=== PATIENT | female | born 1970 | race Caucasian/White ===

== ENCOUNTER 2018-12-29 10:11 | Outpatient (CLI) | payer OTHER ==
--- NOTE | 2018-12-29 11:46 | RAD ---
CHEST TWO VIEWS: INDICATIONS: Nonspecific reaction to gamma interferon. COMPARISON: 01/29/2015 FINDINGS: The lungs are clear. The heart size is normal. No acute osseous abnormality is evident. IMPRESSION: No acute cardiopulmonary abnormality. POS: [facility]
== END 2018-12-29 10:12 | disposition home or self-care (01) ==
LOC: BICRAD 10:11
PROVIDERS: ATTEND Internal Medicine Rheumatology
DX: R76.12 Nonspecific reaction to cell mediated immunity measurement of gamma interferon antigen response without active tuberculosis (principal); Z79.899 Other long term (current) drug therapy
CPT/HCPCS: 71046

== ENCOUNTER 2018-12-30 11:58 | Outpatient (CLI) | payer OTHER ==
--- NOTE | 2018-12-30 12:26 | MMO ---
Bilateral MAMMO Bilat Screen [facility]. CLINICAL HISTORY: Patient is 48 years old and is seen for screening. The patient has no family history of breast cancer. The patient has no personal history of cancer. VIEWS: The views performed were: bilateral craniocaudal with tomosynthesis and bilateral mediolateral oblique with tomosynthesis. FILMS COMPARED: The present examination has been compared to prior imaging studies performed at [facility] on 11/05/2011, 06/29/2014, 07/19/2015 and 07/23/2016. MAMMOGRAM FINDINGS: The breasts are heterogeneously dense, which could obscure a lesion on mammography. There are no suspicious masses, suspicious calcifications, or new areas of architectural distortion. IMPRESSION: THERE IS NO MAMMOGRAPHIC EVIDENCE OF MALIGNANCY. A ROUTINE FOLLOW-UP MAMMOGRAM IN 1 YEAR IS RECOMMENDED. THE RESULTS OF THIS EXAM WERE SENT TO THE PATIENT. ACR BI-RADS Category 1 - Negative MAMMOGRAPHY NOTE: 1. A negative mammogram report should not delay a biopsy if a dominant of clinically suspicious mass is present. 2. Approximately 10% to 15% of breast cancers are not detected by mammography. 3. Adenosis and dense breasts may obscure an underlying neoplasm.
== END 2018-12-30 11:59 | disposition home or self-care (01) ==
LOC: BICMAMMO 11:58
PROVIDERS: ATTEND Obstetrics & Gynecology
DX: Z12.31 Encounter for screening mammogram for malignant neoplasm of breast (principal)
CPT/HCPCS: 77063; 77067

== ENCOUNTER 2019-05-03 09:08 | Outpatient (CLI) | payer OTHER ==
--- NOTE | 2019-05-03 09:59 | RAD ---
LUMBAR SPINE TWO VIEWS: HISTORY: Lumbago with sciatica. Posterior pelvis pain. Pain radiating down both legs. FINDINGS: Mild levoscoliosis of the lower lumbar spine. Multilevel disk osteophytosis changes and facet arthros is. Narrowing at the L4-L5 disk. IMPRESSION: 1. Lumbar spondylosis, particularly at L4-L5. 2. Mild scoliotic changes. 3. No acute fracture or dislocation or other acute process. POS: OFF
== END 2019-05-03 09:09 | disposition home or self-care (01) ==
LOC: BICRAD 09:08
PROVIDERS: ATTEND Nurse Practitioner Family
DX: M54.41 Lumbago with sciatica, right side (principal); M54.42 Lumbago with sciatica, left side; M47.816 Spondylosis without myelopathy or radiculopathy, lumbar region; M41.9 Scoliosis, unspecified
CPT/HCPCS: 72100

== ENCOUNTER 2021-08-12 11:45 | Outpatient (CLI) | payer OTHER | END 2021-08-12 11:46 | disposition home or self-care (01) | LOC: BICRAD 11:45 | PROVIDERS: ATTEND Internal Medicine Rheumatology | DX: Z20.1 Contact with and (suspected) exposure to tuberculosis (principal) | CPT/HCPCS: 71046 ==

== ENCOUNTER 2022-05-05 18:00 | Outpatient (CLI) | payer BC | END 2022-05-05 18:01 | disposition home or self-care (01) | LOC: SLEEPLAB 18:00 | PROVIDERS: ATTEND Family Medicine | DX: G47.33 Obstructive sleep apnea (adult) (pediatric) (principal); R53.83 Other fatigue; F41.9 Anxiety disorder, unspecified; K21.9 Gastro-esophageal reflux disease without esophagitis; E66.9 Obesity, unspecified; R06.83 Snoring; G47.00 Insomnia, unspecified; I10 Essential (primary) hypertension; Z68.35 Body mass index [BMI] 35.0-35.9, adult | CPT/HCPCS: 95800 ==

== ENCOUNTER 2022-06-17 19:00 | Outpatient (CLI) | payer BC | END 2022-06-17 19:01 | disposition home or self-care (01) | LOC: SLEEPLAB 19:00 | PROVIDERS: ATTEND Family Medicine | DX: G47.33 Obstructive sleep apnea (adult) (pediatric) (principal); R53.83 Other fatigue; K21.9 Gastro-esophageal reflux disease without esophagitis; E66.9 Obesity, unspecified; R06.83 Snoring; G47.00 Insomnia, unspecified; I10 Essential (primary) hypertension; G47.10 Hypersomnia, unspecified; Z68.35 Body mass index [BMI] 35.0-35.9, adult | CPT/HCPCS: 95810 ==

== ENCOUNTER 2022-08-30 10:11 | Inpatient (IN) | payer BC ==
[2022-08-30 11:19] LABS: #Basophils 0.1 thou/uL (0.0-0.2); #Eosinphils 0.1 thou/uL (0.0-0.7); #Lymphocytes 1.5 thou/uL (1.20-3.40); #Monocytes 0.8 thou/uL (0.11-0.59); #Neutrophils 6.7 thou/uL (1.40-6.50); %Basophils 0.7 % (0.0-1.0); %Eosinophils 0.8 % (0.0-10.0); %Lymphocytes 16.2 % (21.0-51.0); %Monocytes 8.3 % (0.0-10.0); Hemoglobin 12.4 g/dL (12.0-16.0); Mean Corpuscular HGB CONC 33.3 g/dL (32.0-36.0); Mean Corpuscular Hemoglobin 28.9 pg (27.0-31.0); Mean Corpuscular Volume 86.7 fl (78.0-98.0); Mean Platelet Volume 7.4 fL (7.4-10.4); Platelet Count 342 10x3/uL (130-400); Red Blood Cell (RBC) Count 4.31 mill/uL (4.20-5.40)
[2022-08-30 11:57] LABS: ALT (SGPT) 11 U/L (8-55); AST (SGOT) 14 U/L (5-34); Alkaline Phosphatase 58 U/L (40-110); Anion Gap 16 mmol/L (10-20); BUN (Urea Nitrogen) 11 mg/dL (9.8-20.1); Bilirubin, Total 0.2 mg/dL (0.2-1.2); Calc. Creatinine Clearance 0 mL/min (70-130); Calcium 8.7 mg/dL (7.8-10.44); Carbon Dioxide 21 mmol/L (22-29); Chloride 105 mmol/L (98-107); Estimated GFR 94; Globulin 2.9 g/dL (2.4-3.5); Glucose 89 mg/dL (70-105); Protein, Total 6.9 g/dL (6.0-8.3); Sodium 138 mmol/L (136-145)
[2022-08-30] MEDS ORDERED: Nitroglycerin 2% Ointment 1 INCH/1 GM Packet ONE (12:17)
[2022-08-30] MEDS ORDERED: Ondansetron ODT 4 MG TAB PO PRN (13:16)
[2022-08-30] MEDS ORDERED: Ondansetron PF 4 MG/2 ML Vial IVP PRN (13:16)
[2022-08-30] MEDS ORDERED: Acetaminophen 325 MG TAB PO PRN (13:16)
[2022-08-30] MEDS ORDERED: Aspirin 81 mg Enteric Coated Tablet PO SCH (13:45)
[2022-08-30 14:39] LABS: Troponin I Less than 0.010 ng/mL (< 0.028)
[2022-08-30] MEDS ORDERED: Acetaminophen 325 MG TAB ONE (14:51)
[2022-08-30] MEDS: Sodium Chloride 0.9% 1,000 ML IV SCH (16:30)
[2022-08-30] MEDS: Fioricet 325/50/40 mg Tablet PO PRN (16:56)
[2022-08-30 17:08] LABS: SARS-CoV-2 NAA Rapid Test Not Detected (NotDetected)
[2022-08-30 17:55] LABS: Troponin I Less than 0.010 ng/mL (< 0.028)
[2022-08-30] MEDS: Lisinopril 10 MG TAB PO SCH (21:38)
[2022-08-30] MEDS: Magnesium Oxide 400 MG TAB PO SCH (21:39)
[2022-08-30] MEDS: Pregabalin 75 MG CAP PO SCH (21:39)
[2022-08-30] MEDS: Rosuvastatin 20 MG TAB PO SCH (21:39)
[2022-08-30] MEDS: Cholecalciferol 1,000 UNITS (25 MCG) TAB PO SCH (21:40)
[2022-08-30] MEDS: Nitroglycerin 0.4 MG TAB (25 Tab Bottle) SL PRN (21:41)
[2022-08-30] MEDS: Divalproex Sodium DR 500 MG TAB PO SCH (21:41)
[2022-08-30] MEDS: DULoxetine 60 MG CAP PO SCH (21:41)
[2022-08-31] MEDS: Sodium Chloride 0.9% 1,000 ML IV SCH (04:28)
[2022-08-31 05:12] LABS: #Basophils 0.1 thou/uL (0.0-0.2); #Eosinphils 0.1 thou/uL (0.0-0.7); #Lymphocytes 2.8 thou/uL (1.20-3.40); #Monocytes 0.9 thou/uL (0.11-0.59); #Neutrophils 5.8 thou/uL (1.40-6.50); %Basophils 0.6 % (0.0-1.0); %Eosinophils 1.1 % (0.0-10.0); %Lymphocytes 29.1 % (21.0-51.0); %Monocytes 9.3 % (0.0-10.0); %Neutrophils 59.9 % (42.0-75.0); Hemoglobin 11.3 g/dL (12.0-16.0); Mean Corpuscular HGB CONC 32.3 g/dL (32.0-36.0); Mean Corpuscular Hemoglobin 28.5 pg (27.0-31.0); Mean Corpuscular Volume 88.1 fl (78.0-98.0); Mean Platelet Volume 7.5 fL (7.4-10.4); Platelet Count 334 10x3/uL (130-400); RBC Distribution Width 16.2 % (11.5-14.5); Red Blood Cell (RBC) Count 3.97 mill/uL (4.20-5.40); White Blood Cell (WBC) Count 9.6 10x3/uL (4.8-10.8)
[2022-08-31 05:29] LABS: Anion Gap 12 mmol/L (10-20); BUN (Urea Nitrogen) 15 mg/dL (9.8-20.1); Calc. Creatinine Clearance 132 mL/min (70-130); Calcium 8.4 mg/dL (7.8-10.44); Carbon Dioxide 23 mmol/L (22-29); Cardiac Risk 3.1 (Less than 4.5); Chloride 106 mmol/L (98-107); Cholesterol 151 mg/dl (< 200 Desired); Estimated GFR 104; Glucose 90 mg/dL (70-105); HDL Cholesterol 49 mg/dL (>60 Neg Risk); LDL Cholesterol, Calculated 55 mg/dL; Potassium 3.7 mmol/L (3.5-5.1); Sodium 137 mmol/L (136-145); Triglycerides 234 mg/dL (Less than 150)
[2022-08-31 05:53] LABS: Hemoglobin A1c 5.5 % (4.0-6.0)
[2022-08-31] MEDS ORDERED: Non-Formulary Item 1 EACH (Buprenorphine Hcl [Belbuca] 300 MCG Film) PO PRN (08:46)
[2022-08-31] MEDS ORDERED: Buprenorphine Hcl [Belbuca] 300 MCG Film PO PRN (08:53)
[2022-08-31] MEDS: Pregabalin 75 MG CAP PO SCH ×2 (08:57→20:11)
[2022-08-31] MEDS: Ezetimibe 10 MG TAB PO SCH (08:58)
[2022-08-31] MEDS: Magnesium Oxide 400 MG TAB PO SCH ×2 (08:58→20:11)
[2022-08-31] MEDS: DULoxetine 60 MG CAP PO SCH ×2 (08:58→20:11)
[2022-08-31] MEDS: Leflunomide 10 mg Tablet PO SCH (08:58)
[2022-08-31] MEDS: Divalproex Sodium DR 500 MG TAB PO SCH ×2 (09:02→20:11)
[2022-08-31] MEDS: Nitroglycerin 0.4 MG TAB (25 Tab Bottle) SL PRN (12:01)
[2022-08-31] MEDS: Fioricet 325/50/40 mg Tablet PO PRN (12:12)
[2022-08-31] MEDS ORDERED: Morphine 4 MG/ML VIAL ONE (12:28)
[2022-08-31] MEDS ORDERED: Morphine 2 MG/ML VIAL SLOW IVP SCH (12:30)
[2022-08-31] MEDS ORDERED: Communication Order-Pharmacy FS SCH (13:15)
[2022-08-31] MEDS: Rosuvastatin 20 MG TAB PO SCH (20:11)
[2022-08-31] MEDS: Lisinopril 10 MG TAB PO SCH (20:11)
[2022-09-01] MEDS: Pregabalin 75 MG CAP PO SCH ×2 (05:14→21:13)
[2022-09-01] MEDS: Leflunomide 10 mg Tablet PO SCH (05:14)
[2022-09-01] MEDS: DULoxetine 60 MG CAP PO SCH ×2 (05:14→05:15)
[2022-09-01] MEDS: Ezetimibe 10 MG TAB PO SCH (05:15)
[2022-09-01] MEDS: Magnesium Oxide 400 MG TAB PO SCH ×2 (05:16→21:13)
[2022-09-01] MEDS: Divalproex Sodium DR 500 MG TAB PO SCH ×2 (05:21→21:12)
[2022-09-01 05:22] LABS: Anion Gap 13 mmol/L (10-20); BUN (Urea Nitrogen) 18 mg/dL (9.8-20.1); Calc. Creatinine Clearance 121 mL/min (70-130); Calcium 8.5 mg/dL (7.8-10.44); Carbon Dioxide 23 mmol/L (22-29); Chloride 106 mmol/L (98-107); Estimated GFR 96; Glucose 97 mg/dL (70-105); Potassium 3.5 mmol/L (3.5-5.1); Sodium 138 mmol/L (136-145)
[2022-09-01] MEDS ORDERED: Heparin 10,000 UNITS/ 10 ML VIAL ONE ×2 (06:25→08:12)
[2022-09-01] MEDS ORDERED: Lidocaine 1% (PF) 30 ML VIAL ONE (06:25)
[2022-09-01] MEDS ORDERED: Nitroglycerin 100MG/250ML BOT 250 ML ONE (06:25)
[2022-09-01] MEDS ORDERED: Midazolam HCl 2 mg/2 ml Vial ONE (07:05)
[2022-09-01] MEDS ORDERED: FENTANYL 50 MCG/ML 1 ML VIAL ONE ×3 (07:06→08:53)
[2022-09-01] MEDS ORDERED: Metoprolol Tartrate 5 MG/5 ML VIAL ONE (07:17)
[2022-09-01] MEDS ORDERED: TICAGRELOR 90 MG TABLET ONE (08:24)
[2022-09-01] MEDS ORDERED: Nitroglycerin 4.9 GM Bottle ONE (08:46)
[2022-09-01] MEDS ORDERED: Nitroglycerin 2% Ointment 1 INCH/1 GM Packet ONE (08:53)
[2022-09-01] MEDS ORDERED: Iopamidol 370 76% 100 ML VIAL ONE (09:14)
[2022-09-01] MEDS ORDERED: Nitroglycerin 0.4 MG TAB (25 Tab Bottle) SL PRN (10:30)
[2022-09-01] MEDS ORDERED: Sodium Chloride 0.9% 1,000 ML IV SCH (10:30)
[2022-09-01] MEDS ORDERED: Acetaminophen/Codeine 30-300mg Tablet ONE (11:15)
[2022-09-01] MEDS ORDERED: Ketorolac Tromethamine 30 MG/ML VIAL IVP SCH (17:45)
[2022-09-01] MEDS ORDERED: Aspirin 81 mg Enteric Coated Tablet PO SCH (18:45)
[2022-09-01] MEDS ORDERED: Clopidogrel Bisulfate 300 MG TAB PO SCH (20:00)
[2022-09-01] MEDS ORDERED: TICAGRELOR 90 MG TABLET PO SCH (21:00)
[2022-09-01] MEDS: Lisinopril 10 MG TAB PO SCH (21:12)
[2022-09-01] MEDS: Cholecalciferol 1,000 UNITS (25 MCG) TAB PO SCH (21:12)
[2022-09-01] MEDS: Rosuvastatin 20 MG TAB PO SCH (21:13)
[2022-09-02 05:18] LABS: #Eosinphils 0.2 thou/uL (0.0-0.7); #Lymphocytes 1.5 thou/uL (1.20-3.40); #Monocytes 1.1 thou/uL (0.11-0.59); #Neutrophils 4.8 thou/uL (1.40-6.50); %Basophils 0.6 % (0.0-1.0); %Eosinophils 2.8 % (0.0-10.0); %Lymphocytes 20.1 % (21.0-51.0); %Monocytes 13.8 % (0.0-10.0); %Neutrophils 62.7 % (42.0-75.0); Hemoglobin 10.9 g/dL (12.0-16.0); Mean Corpuscular HGB CONC 32.1 g/dL (32.0-36.0); Mean Corpuscular Hemoglobin 27.9 pg (27.0-31.0); Mean Corpuscular Volume 86.9 fl (78.0-98.0); Mean Platelet Volume 7.6 fL (7.4-10.4); Platelet Count 310 10x3/uL (130-400); RBC Distribution Width 16.1 % (11.5-14.5); White Blood Cell (WBC) Count 7.7 10x3/uL (4.8-10.8)
[2022-09-02 05:39] LABS: Anion Gap 13 mmol/L (10-20); BUN (Urea Nitrogen) 13 mg/dL (9.8-20.1); Calc. Creatinine Clearance 138 mL/min (70-130); Calcium 8.6 mg/dL (7.8-10.44); Carbon Dioxide 23 mmol/L (22-29); Chloride 104 mmol/L (98-107); Estimated GFR 105; Glucose 100 mg/dL (70-105); Magnesium 2.1 mg/dL (1.6-2.6); Potassium 3.7 mmol/L (3.5-5.1); Sodium 136 mmol/L (136-145)
[2022-09-02] MEDS ORDERED: Clopidogrel Bisulfate 75 MG TAB PO SCH (09:00)
[2022-09-02] MEDS ORDERED: Aspirin Chewable 81 MG TAB PO SCH (09:00)
[2022-09-02] MEDS ORDERED: Icosapent Ethyl 1 GM CAPSULE PO SCH (09:00)
[2022-09-02] MEDS: Pregabalin 75 MG CAP PO SCH (09:47)
[2022-09-02] MEDS: Leflunomide 10 mg Tablet PO SCH (09:48)
[2022-09-02] MEDS: Divalproex Sodium DR 500 MG TAB PO SCH (09:49)
[2022-09-02] MEDS: DULoxetine 60 MG CAP PO SCH (09:49)
[2022-09-02] MEDS: Ezetimibe 10 MG TAB PO SCH (09:49)
[2022-09-02] MEDS: Magnesium Oxide 400 MG TAB PO SCH (09:50)
[2022-09-02 13:39] VITALS: BP 119/67; TEMP 98
== END 2022-09-02 15:00 | disposition home or self-care (01) | DRG 247 ==
LOC: ERS 10:11 → 2NO 12:56 → OBSVTOIN 09-01 12:36
PROVIDERS: ADMIT Internal Medicine; ATTEND Internal Medicine
PROC: 027034Z Dilation of Coronary Artery, One Artery with Drug-eluting Intraluminal Device, Percutaneous Approach (ICD-10-PCS; principal; 2022-09-01)
PROC: 4A023N7 Measurement of Cardiac Sampling and Pressure, Left Heart, Percutaneous Approach (ICD-10-PCS; 2022-09-01)
PROC: B2111ZZ Fluoroscopy of Multiple Coronary Arteries using Low Osmolar Contrast (ICD-10-PCS; 2022-09-01)
PROC: B2151ZZ Fluoroscopy of Left Heart using Low Osmolar Contrast (ICD-10-PCS; 2022-09-01)
DX: I25.119 Atherosclerotic heart disease of native coronary artery with unspecified angina pectoris (principal); I10 Essential (primary) hypertension; E78.5 Hyperlipidemia, unspecified; G43.909 Migraine, unspecified, not intractable, without status migrainosus; F41.9 Anxiety disorder, unspecified; F32.A Depression, unspecified; M06.9 Rheumatoid arthritis, unspecified; G89.29 Other chronic pain; K21.9 Gastro-esophageal reflux disease without esophagitis; E78.00 Pure hypercholesterolemia, unspecified; M79.7 Fibromyalgia; Z20.822 Contact with and (suspected) exposure to COVID-19; Z88.8 Allergy status to other drugs, medicaments and biological substances; Z79.899 Other long term (current) drug therapy; Z79.82 Long term (current) use of aspirin
CPT/HCPCS: 36415; 71045; 80048; 80053; 80061; 83036; 83735; 84484; 85025; 85347; 85379; 92928; 93005; 93010; 93458; 93925; 94760; 96374; 99152; 99153; C1769; C1874; C1887; C9600; G0378; J1644; J1885; J2001; J2250; J2272; J3010; J7050

== ENCOUNTER 2022-10-09 19:00 | Outpatient (CLI) | payer BC | END 2022-10-09 19:01 | disposition home or self-care (01) | LOC: SLEEPLAB 19:00 | PROVIDERS: ATTEND Family Medicine | DX: G47.33 Obstructive sleep apnea (adult) (pediatric) (principal); R53.83 Other fatigue; K21.9 Gastro-esophageal reflux disease without esophagitis; E66.9 Obesity, unspecified; G47.00 Insomnia, unspecified; R06.83 Snoring; I10 Essential (primary) hypertension | CPT/HCPCS: 95811 ==

== ENCOUNTER 2022-11-04 05:44 | Day surgery (SDC) | payer BC ==
[2022-10-31 13:25] VITALS: BMI 38.0
[2022-11-04] MEDS ORDERED: Bupivacaine PF 0.5% 30 ML VIAL ONE (06:51)
[2022-11-04] MEDS ORDERED: Betamet Acet/Betamet Na Ph 30 MG/5 ML VIAL ONE (06:51)
[2022-11-04] MEDS ORDERED: Bacitracin Zinc Ointment 30 gm TUBE ONE (06:51)
[2022-11-04] MEDS ORDERED: Neomycin-Polymyxin 1 ML AMP ONE (06:51)
[2022-11-04] MEDS ORDERED: Fentanyl 250 MCG/5 ML VIAL ONE (06:56)
[2022-11-04] MEDS ORDERED: Midazolam HCl 2 mg/2 ml Vial ONE (06:57)
[2022-11-04] MEDS ORDERED: Sodium Chloride 0.9% 100 ML ONE (07:01)
[2022-11-04] MEDS ORDERED: CEFAZOLIN 2 GM VIAL ONE (07:01)
[2022-11-04] MEDS ORDERED: Ondansetron PF 4 MG/2 ML Vial ONE (07:09)
[2022-11-04] MEDS ORDERED: Lidocaine 1% PF 5 ML VIAL ONE (07:09)
[2022-11-04] MEDS ORDERED: PROPOFOL 200 MG/20 ML VIAL ONE (07:09)
[2022-11-04] MEDS ORDERED: Dexamethasone 20 MG/5 ML VIAL ONE (07:09)
[2022-11-04] MEDS ORDERED: Thrombin 5000 UNITS/5 ML VIAL ONE (07:34)
== END 2022-11-04 09:39 | disposition home or self-care (01) ==
LOC: SDC 05:44
PROVIDERS: ATTEND Orthopaedic Surgery Hand Surgery
PROC: 01N50ZZ Release Median Nerve, Open Approach (ICD-10-PCS; principal; 2022-11-04)
DX: G56.03 Carpal tunnel syndrome, bilateral upper limbs (principal); E78.00 Pure hypercholesterolemia, unspecified; G43.909 Migraine, unspecified, not intractable, without status migrainosus; K21.9 Gastro-esophageal reflux disease without esophagitis; M06.9 Rheumatoid arthritis, unspecified; Z79.02 Long term (current) use of antithrombotics/antiplatelets; Z79.82 Long term (current) use of aspirin; Z79.899 Other long term (current) drug therapy; Z88.8 Allergy status to other drugs, medicaments and biological substances; Z95.5 Presence of coronary angioplasty implant and graft
CPT/HCPCS: J0702; J1100; J2250; J2405; J2704; J3010; J3490; S0020

== ENCOUNTER 2023-04-21 13:30 | Emergency (ER) | payer BC ==
[2023-04-21 15:53] LABS: #Basophils 0.1 thou/uL (0.0-0.2); #Eosinphils 0.1 thou/uL (0.0-0.7); #Monocytes 0.2 thou/uL (0.11-0.59); #Neutrophils 6.2 thou/uL (1.40-6.50); %Basophils 1.3 % (0.0-1.0); %Eosinophils 1.7 % (0.0-10.0); %Monocytes 2.5 % (0.0-10.0); %Neutrophils 82.7 % (42.0-75.0); Hematocrit 35.6 % (36.0-47.0); Hemoglobin 10.7 g/dL (12.0-16.0); Mean Corpuscular HGB CONC 30.1 g/dL (32.0-36.0); Mean Corpuscular Hemoglobin 29.9 pg (27.0-31.0); Mean Corpuscular Volume 99.4 fl (78.0-98.0); Mean Platelet Volume 9.5 fL (7.4-10.4); Platelet Count 276 10x3/uL (130-400); RBC Distribution Width 14.5 % (11.5-14.5); Red Blood Cell (RBC) Count 3.58 mill/uL (4.20-5.40); White Blood Cell (WBC) Count 7.5 10x3/uL (4.8-10.8)
[2023-04-21 16:16] LABS: ALT (SGPT) 15 U/L (8-55); AST (SGOT) 16 U/L (5-34); Alkaline Phosphatase 62 U/L (40-110); Anion Gap 12 mmol/L (10-20); BUN (Urea Nitrogen) 8 mg/dL (9.8-20.1); Bilirubin, Total Less than 0.2 mg/dL (0.2-1.2); Calc. Creatinine Clearance 0 mL/min (70-130); Calcium 8.7 mg/dL (7.8-10.44); Carbon Dioxide 24 mmol/L (22-29); Chloride 107 mmol/L (98-107); Estimated GFR 85; Globulin 2.5 g/dL (2.4-3.5); Glucose 119 mg/dL (70-105); Potassium 4.7 mmol/L (3.5-5.1); Protein, Total 6.5 g/dL (6.0-8.3); Sodium 138 mmol/L (136-145)
[2023-04-21 16:20] LABS: Troponin I Less than 0.010 ng/mL (< 0.028)
== END 2023-04-21 17:09 | disposition home or self-care (01) ==
LOC: ERS 13:30
DX: T78.40XA Allergy, unspecified, initial encounter (principal); I25.10 Atherosclerotic heart disease of native coronary artery without angina pectoris; E78.00 Pure hypercholesterolemia, unspecified; I10 Essential (primary) hypertension
CPT/HCPCS: 36415; 71045; 80053; 83735; 84484; 85025; 93005

== ENCOUNTER 2023-06-09 13:00 | Outpatient (CLI) | payer BC | END 2023-06-09 13:01 | disposition home or self-care (01) | LOC: BICCT 13:00 | PROVIDERS: ATTEND Nurse Practitioner Family | DX: G43.109 Migraine with aura, not intractable, without status migrainosus (principal) | CPT/HCPCS: 70450 ==

== ENCOUNTER 2023-06-09 14:05 | Outpatient (CLI) | payer BC | END 2023-06-09 14:06 | disposition home or self-care (01) | LOC: MRI 14:05 | PROVIDERS: ATTEND Specialist | DX: M51.16 Intervertebral disc disorders with radiculopathy, lumbar region (principal); M47.26 Other spondylosis with radiculopathy, lumbar region | CPT/HCPCS: 36415; 72148; 80053; 80061; 82306; 85025; 86140 ==

== ENCOUNTER 2024-06-03 12:25 | Outpatient (CLI) | payer BC | END 2024-06-03 12:26 | disposition home or self-care (01) | LOC: MRI 12:25 | PROVIDERS: ATTEND Orthopaedic Surgery | DX: M25.512 Pain in left shoulder (principal); S43.432A Superior glenoid labrum lesion of left shoulder, initial encounter; M25.412 Effusion, left shoulder ==

== ENCOUNTER 2025-06-22 10:01 | Outpatient (CLI) | payer BC ==
[2025-06-22 11:10] LABS: Mean Corpuscular Hemoglobin 27.0 pg (27.0-31.0)
[2025-06-22 11:15] LABS: #Basophils 0.11 10x3/uL (0.0-0.2); #Eosinophils 0.42 10x3/uL (0.0-0.7); #Monocytes 0.99 10x3/uL (0.11-0.59); #Neutrophils 7.06 10x3/uL (1.40-6.50); %Basophils 1.0 % (0.0-1.0); %Eosinophils 3.6 % (0.0-10.0); %Lymphocytes 24.1 % (21.0-51.0); %Monocytes 8.6 % (0.0-10.0); %Neutrophils 61.1 % (42.0-75.0); Hematocrit 37.3 % (36.0-47.0); Hemoglobin 11.6 g/dL (12.0-16.0); Mean Corpuscular Volume 86.7 fL (78.0-98.0); Platelet Count 320 10x3/uL (130-400); Red Blood Cell (RBC) Count 4.30 mill/uL (4.20-5.40); White Blood Cell (WBC) Count 11.55 10x3/uL (4.8-10.8)
[2025-06-22 11:27] LABS: ALT (SGPT) 20 U/L (Less than 34); AST (SGOT) 23 U/L (11-34); Albumin 3.6 g/dL (3.1-4.5); Alkaline Phosphatase 89 U/L (40-110); Anion Gap 13 mmol/L (10-20); BUN (Urea Nitrogen) 16 mg/dL (9.8-20.1); Bilirubin, Total 0.3 mg/dL (0.3-1.2); Calc. Creatinine Clearance 0 mL/min (70-130); Calcium 8.9 mg/dL (7.8-10.44); Carbon Dioxide 23 mmol/L (22-29); Chloride 103 mmol/L (98-107); Globulin 3.2 g/dL (2.4-3.5); Glucose 97 mg/dL (70-105); Potassium 4.5 mmol/L (3.5-5.1); Sodium 134 mmol/L (136-145)
== END 2025-06-22 10:02 | disposition home or self-care (01) ==
LOC: LABBT 10:01
PROVIDERS: ATTEND Orthopaedic Surgery
DX: Z01.818 Encounter for other preprocedural examination (principal); M75.112 Incomplete rotator cuff tear or rupture of left shoulder, not specified as traumatic
CPT/HCPCS: 80053; 85025; 93005; 93010

== ENCOUNTER 2025-06-29 05:59 | Day surgery (SDC) | payer BC ==
[2025-06-22 10:17] VITALS: BMI 39.4
[2025-06-29] MEDS ORDERED: Bupivacaine 0.25% HCL 30 ML VIAL ONE (06:23)
[2025-06-29] MEDS ORDERED: Lidocaine 1% w/Epinephrine 1:100K 20 ML VIAL ONE (06:25)
[2025-06-29] MEDS ORDERED: Glycopyrrolate 0.2 MG/ML 5 ML SYRINGE ONE (06:41)
[2025-06-29] MEDS ORDERED: fentaNYL PF 100 MCG/2 ML SYRINGE ONE (06:41)
[2025-06-29] MEDS ORDERED: Rocuronium Bromide 10 MG/ML (10ML VIAL) ONE (06:41)
[2025-06-29] MEDS ORDERED: Ondansetron PF 4 MG/2 ML Vial ONE (06:41)
[2025-06-29] MEDS ORDERED: PHENYLEPHRINE-NS 100 MCG/ML 10 ML SYRINGE ONE ×2 (06:41→08:01)
[2025-06-29] MEDS ORDERED: Lidocaine 1% PF 5 ML VIAL ONE (06:41)
[2025-06-29] MEDS ORDERED: Ropivacaine 0.2% HCl/PF 20 ML ONE (06:42)
[2025-06-29] MEDS ORDERED: Ropivacaine 0.5% HCl/PF (150 MG/30 ML VIAL) ONE (06:42)
[2025-06-29] MEDS ORDERED: Lidocaine 2% 6 ML (Jelly) SYR ONE (06:47)
[2025-06-29] MEDS ORDERED: SUCCINYLCHOLINE/SOD CL,ISO/PF 200 MG/10 ML SYRINGE FS ONE (06:49)
[2025-06-29] MEDS ORDERED: CEFAZOLIN 2 GM VIAL ONE (06:52)
[2025-06-29] MEDS ORDERED: PROPOFOL 200 MG/20 ML VIAL ONE (07:15)
[2025-06-29] MEDS ORDERED: Ropivacaine 0.2% 550 ML 550 ML NERVE BLCK SCH (07:45)
[2025-06-29] MEDS ORDERED: Ondansetron PF 4 MG/2 ML Vial IVP PRN (07:45)
[2025-06-29] MEDS ORDERED: HYDROcodone/Acetaminophen 10/325 mg Tablet PO PRN ×2 (07:45)
[2025-06-29] MEDS ORDERED: SUGAMMADEX SODIUM 200 MG/2 ML VIAL ONE (08:31)
[2025-06-29] MEDS ORDERED: HYDROcodone/Acetaminophen 5/325 mg Tablet ONE (10:35)
[2025-06-29] MEDS ORDERED: Ketorolac Tromethamine 30 MG (1 mL) VIAL IVP SCH (12:00)
== END 2025-06-29 11:45 | disposition home or self-care (01) ==
LOC: SDC 05:59
PROVIDERS: ATTEND Orthopaedic Surgery
PROC: 3E0T3BZ Introduction of Anesthetic Agent into Peripheral Nerves and Plexi, Percutaneous Approach (ICD-10-PCS; principal; 2025-06-29)
PROC: 0LM24ZZ Reattachment of Left Shoulder Tendon, Percutaneous Endoscopic Approach (ICD-10-PCS; 2025-06-29)
PROC: 0LS40ZZ Reposition Left Upper Arm Tendon, Open Approach (ICD-10-PCS; 2025-06-29)
DX: M75.112 Incomplete rotator cuff tear or rupture of left shoulder, not specified as traumatic (principal); S46.112A Strain of muscle, fascia and tendon of long head of biceps, left arm, initial encounter; S43.432A Superior glenoid labrum lesion of left shoulder, initial encounter; E78.00 Pure hypercholesterolemia, unspecified; F41.9 Anxiety disorder, unspecified; F32.A Depression, unspecified; G56.22 Lesion of ulnar nerve, left upper limb; M50.30 Other cervical disc degeneration, unspecified cervical region; Z95.5 Presence of coronary angioplasty implant and graft; Z98.41 Cataract extraction status, right eye; Z98.42 Cataract extraction status, left eye; Z88.8 Allergy status to other drugs, medicaments and biological substances; X58.XXXA Exposure to other specified factors, initial encounter
CPT/HCPCS: A4306; C1713; J0169; J0665; J1100; J2250; J2371; J2405; J2704; J2795; J3010